=== PATIENT | female | born 1990 | race Caucasian/White ===

== ENCOUNTER → 2023-09-20 15:02 | Outpatient (REF) | payer OTHER, SELFPAY | LOC: PNTC 15:02 | PROVIDERS: ATTENDING PHYSICIAN Obstetrics & Gynecology | DX: Z36.0 Encounter for antenatal screening for chromosomal anomalies (principal); Z36.82 Encounter for antenatal screening for nuchal translucency | CPT/HCPCS: 76801; 76813 ==

== ENCOUNTER → 2023-10-18 09:08 | Outpatient (REF) | payer OTHER, SELFPAY | LOC: PNTC 09:08 | PROVIDERS: ATTENDING PHYSICIAN Obstetrics & Gynecology | DX: O99.210 Obesity complicating pregnancy, unspecified trimester (principal) | CPT/HCPCS: 76805 ==

== ENCOUNTER → 2024-02-14 10:38 | Outpatient (REF) | payer OTHER, SELFPAY | LOC: PNTC 10:38 | PROVIDERS: ATTENDING PHYSICIAN Obstetrics & Gynecology | DX: O99.210 Obesity complicating pregnancy, unspecified trimester (principal) | CPT/HCPCS: 76816 ==

== ENCOUNTER 2024-04-02 19:32 | Inpatient (IN) | payer OTHER, SELFPAY ==
[2024-04-02 19:48] VITALS: BP 115/73; BMI 34.6
[2024-04-02] MEDS: CYTOTEC 50 MICROGRAM VAG (20:50)
[2024-04-02 22:55] LABS: % Basophils 0.4 % (0-2); % Eosinophils 0.3 % (0-6); % Immature Granulocytes 2.5 % (0-0.5); % Lymphocytes 20.1 % (20.5-51.1); % Monocytes 6.9 % (1.7-9.3); % Neutrophils 69.8 % (42.2-75.2); Absolute Immature Granulocytes 0.3 10^3/uL (0-0.05); Absolute Lymphocytes 2.3 10^3/uL (1.2-3.4); Absolute Monocytes 0.8 10^3/uL (0.1-0.6); Hematocrit 36.1 % (37.0-47.0); Hemoglobin 12.7 g/dL (12.0-16.0); Mean Corp Hgb Conc. 35.2 g/dL (33.0-37.0); Mean Corpuscular Hgb 29.1 pg (27.0-31.0); Mean Corpuscular Volume 82.8 fL (81.0-99.0); Mean Platelet Volume 11.7 fL (7.4-10.4); Nucleated Red Blood Cells % 0 %; Platelet Count 169 10^3/uL (130-400); Red Blood Cell Count 4.36 10^6/uL (4.20-5.40); Red Cell Dist. Width 13.3 % (11.5-14.5); White Blood Cell Count 11.4 10^3/uL (4.8-10.8)
[2024-04-03] MEDS: LR 1000 IV ×2 (00:37→01:46)
[2024-04-03] MEDS: SUBLIMAZE 100 MCG EPIDURAL (01:45)
[2024-04-03] MEDS: FENTANYL/BUPIVACAINE 100 EPIDURAL (01:46)
[2024-04-03] MEDS: PITOCIN 30 UNITS/NSS 500 ML IV (03:06)
[2024-04-03] MEDS: MOTRIN 600 MG PO (08:56)
[2024-04-03] MEDS: PRENATAL PLUS 1 TABLET PO (08:56)
[2024-04-04] MEDS: MOTRIN 600 MG PO (04:11)
[2024-04-04 05:03] LABS: Hematocrit 36.2 % (37.0-47.0); Hemoglobin 12.6 g/dL (12.0-16.0)
[2024-04-04] MEDS: PRENATAL PLUS 1 TABLET PO (08:21)
[2024-04-04 15:12] LABS: Syphilis/T. pallidum Ab Reflex Negative (Negative)
== END 2024-04-04 13:38 | disposition home or self-care (01) | DRG 807 ==
LOC: LDRP 19:32
PROVIDERS: ADMITTING PHYSICIAN Obstetrics & Gynecology; REFERRING PHYSICIAN Obstetrics & Gynecology
PROC: 3E0P7VZ Introduction of Hormone into Female Reproductive, Via Natural or Artificial Opening (ICD-10-PCS; 2024-04-02)
PROC: 10E0XZZ Delivery of Products of Conception, External Approach (ICD-10-PCS; 2024-04-03)
PROC: 6A550ZT Pheresis of Cord Blood Stem Cells, Single (ICD-10-PCS; 2024-04-03)
PROC: 0KQM0ZZ Repair Perineum Muscle, Open Approach (ICD-10-PCS; 2024-04-03)
DX: O48.0 Post-term pregnancy (principal); Z37.0 Single live birth; Z3A.40 40 weeks gestation of pregnancy; O70.1 Second degree perineal laceration during delivery; O24.424 Gestational diabetes mellitus in childbirth, insulin controlled; O69.1XX0 Labor and delivery complicated by cord around neck, with compression, not applicable or unspecified; Z79.4 Long term (current) use of insulin; Z88.2 Allergy status to sulfonamides
CPT/HCPCS: 36415; 85014; 85018; 85025; 86780; 86850; 86900; 86901